=== PATIENT | male | born 1975 | race Caucasian/White ===

== ENCOUNTER 2025-01-17 08:51 | Outpatient (CLI) | payer OTHER, SELFPAY ==
--- NOTE | 2025-01-17 09:45 | P.ANES_ITS ---
Anesthesia Charges Start Date/Time Anesthesia Start Date: 01/17/25 Anesthesia Start Time: 09:17 Stop Date/Time Anesthesia Stop Date: 01/17/25 Anesthesia Stop Time: 09:40 Coding CPT Codes CPT Codes: JOSÉ MIGUEL LWR INTST SCR COLSC - [id number] ([id number]) P2 - PATIENT W/MILD SYST DISEASE, QK - VOICE OVER ANNOUNCER 2-4 CNCRNT ANES PROC
--- NOTE | 2025-01-17 09:45 | W.ANESCHARGE ---
Anesthesia Charges Start Date/Time Anesthesia Start Date: 01/17/25 Anesthesia Start Time: 09:17 Stop Date/Time Anesthesia Stop Date: 01/17/25 Anesthesia Stop Time: 09:40 Coding CPT Codes CPT Codes: JOSÉ MIGUEL LWR INTST SCR COLSC - [id number] ([id number]) P2 - PATIENT W/MILD SYST DISEASE, QK - TRACK BROOM OPERATOR 2-4 CNCRNT ANES PROC
--- NOTE | 2025-01-17 10:17 | P.ANES_ITS ---
Anesthesia Charges Start Date/Time Anesthesia Start Date: 01/17/25 Anesthesia Start Time: 09:17 Stop Date/Time Anesthesia Stop Date: 01/17/25 Anesthesia Stop Time: 09:40 Coding CPT Codes CPT Codes: JOSÉ MIGUEL LWR INTST SCR COLSC - [id number] ([id number]) P2 - PATIENT W/MILD SYST DISEASE, QX - CIRCULAR KNIFE CUTTER MACHINE SVC W/ MD MED DIRECTION, QK - BLACK OXIDE COATING EQUIPMENT TENDER 2-4 CNCRNT ANES PROC
--- NOTE | 2025-01-17 10:17 | W.ANESCHARGE ---
Anesthesia Charges Start Date/Time Anesthesia Start Date: 01/17/25 Anesthesia Start Time: 09:17 Stop Date/Time Anesthesia Stop Date: 01/17/25 Anesthesia Stop Time: 09:40 Coding CPT Codes CPT Codes: JOSÉ MIGUEL LWR INTST SCR COLSC - [id number] ([id number]) P2 - PATIENT W/MILD SYST DISEASE, QX - LAUNDRY TECH SVC W/ MD MED DIRECTION, QK - ELECTRICAL LOGGING ENGINEER 2-4 CNCRNT ANES PROC
== END 2025-01-17 08:52 | disposition home or self-care (01) ==
PROVIDERS: PCP Family Medicine; Visit Provider Internal Medicine
DX: Z12.11 Encounter for screening for malignant neoplasm of colon (principal)
CPT/HCPCS: 00812; 45378; J2704